=== PATIENT | female | born 1990 | race Caucasian/White ===

== ENCOUNTER 2017-08-08 02:15 | Emergency (ER) | payer OTHER ==
[~2017-08-08] VITALS: Ht 167.6 cm; Wt 79.8 kg
[2017-08-08] MEDS ORDERED: NEXPLANON68 MG (02:35)
[2017-08-08] MEDS ORDERED: CIPRO500 MG PO (09:43)
[2017-08-08] MEDS ORDERED: FLAGYL500MG PO (09:43)
[2017-08-08] MEDS ORDERED: ZANTAC150 MG PO (09:43)
[2017-08-08] MEDS ORDERED: ACIDOPHILUS1 EAC3 PO (09:43)
== END 2017-08-08 11:07 | disposition home or self-care (01) ==
LOC: ER 02:15
DX: K52.9 Noninfective gastroenteritis and colitis, unspecified (principal)